=== PATIENT | female | born 1995 | race Hispanic/Latino ===

== ENCOUNTER 2016-09-26 00:02 | Emergency (ER) | payer OTHER ==
[2016-09-26 00:16] VITALS: BP 134/67; RESP 18; TEMP 97.8; O2SAT 98
[2016-09-26] MEDS ORDERED: Sodium Chloride 0.9% 1,000 ML IV STA (00:24)
--- NOTE | 2016-09-26 00:27 | ED PDOC ---
HPI: Psych/Substance Abuse Time Seen by Provider: 09/26/16 00:18 Chief Complaint (Nursing): Alcohol Ingestion Chief Complaint (Provider): etoh History Per: Patient, Other (friend) History/Exam Limitations: no limitations Onset/Duration Of Symptoms: Hrs Current Symptoms Are (Timing): Still Present Additional History Per: Patient, Friend Additional Complaint(s): 21 y/o male brought in by friend for eval of acute alcohol intoxication with vomiting. Patient's friend states she had multiple whiskey shots and mixed drinks and did not eat dinner. Denies fever, cough, congestion, chest pain, shortness of breath, palpitations, abdominal pain, changes in bowel movements, urinary symptoms, drug use. Past Medical History Reviewed: Historical Data, Nursing Documentation, Vital Signs Vital Signs: Last Vital Signs Temp 97.8 F 09/26/16 00:14 Pulse 112 H 09/26/16 00:14 Resp 18 09/26/16 00:14 BP 134/67 09/26/16 00:14 Pulse Ox 98 09/26/16 00:14 - Medical History PMH: No Chronic Diseases - Surgical History Surgical History: Tonsillectomy - Family History Family History: States: Unknown Family Hx - Living Arrangements Living Arrangements: Alone - Allergies Allergies/Adverse Reactions: Allergies Allergy/AdvReac Type Severity Reaction Status Date / Time No Known Allergies Allergy Verified 09/26/16 00:14 Review of Systems ROS Statement: Except As Marked, All Systems Reviewed And Found Negative Gastrointestinal: Positive for: Nausea, Vomiting Physical Exam - Reviewed Nursing Documentation Reviewed: Yes Vital Signs Reviewed: Yes - Physical Exam Appears: Positive for: Well, Non-toxic, No Acute Distress Head Exam: Positive for: ATRAUMATIC, NORMAL INSPECTION, NORMOCEPHALIC Skin: Positive for: Normal Color Eye Exam: Positive for: Normal appearance ENT: Positive for: Normal ENT Inspection Cardiovascular/Chest: Positive for: Regular Rate, Rhythm Respiratory: Positive for: Normal Breath Sounds Gastrointestinal/Abdominal: Positive for: Normal Exam, Bowel Sounds, Soft. Negative for: Tenderness Back: Positive for: Normal Inspection Extremity: Positive for: Normal ROM Neurologic/Psych: Positive for: Alert, Oriented, Other (+AOB, slurred speech) - Laboratory Results Result Diagrams: 09/26/16 00:29 09/26/16 00:29 - ECG O2 Sat by Pulse Oximetry: 98 - Progress ED Course And Treament: labs, urine, IV fluids, IV zofran 3:30 Patient tolerated PO, states she is feeling better. Patient educated on findings, discharged with instructions to follow up with PMD 2-3 days. Return to ED for worsening/concerning symptoms. Disposition - Clinical Impression Clinical Impression: Acute alcohol intoxication - Patient ED Disposition Is Patient to be Admitted: No Counseled Patient/Family Regarding: Studies Performed, Diagnosis, Need For Followup - Disposition Disposition: Routine/Home Disposition Time: 03:37 Condition: IMPROVED Instructions: Alcohol Intoxication (ED)
[2016-09-26 01:06] LABS: BASO % 0.8 % (0.0-2.0); EOS % 0.2 % (0.0-4.0); LYMPH # 1.4 K/uL (1.0-4.3); LYMPH % 22.7 % (20.0-40.0); MEAN CELL VOLUME 92.5 fl (81.0-99.0); MEAN CORPUSCULAR HEMOGLOBIN 30.4 pg (27.0-31.0); MEAN CORPUSCULAR HGB CONC 32.9 g/dL (33.0-37.0); MEAN PLATELET VOLUME 7.8 fl (7.2-11.7); MONO # 0.1 K/uL (0.0-0.8); MONO % 2.4 % (0.0-10.0); NEUT # 4.5 K/uL (1.8-7.0); NEUT % 73.9 % (50.0-75.0); RED CELL DISTRIBUTION WIDTH 13.2 % (11.5-14.5)
[2016-09-26 01:15] LABS: ALB/GLOB RATIO 1.7 (1.0-2.1); ALCOHOL SERUM 134 mg/dl (0-10); ALKALINE PHOSPHATASE 70 U/L (38-126); ALT/SGPT 34 U/L (9-52); AST/SGOT 29 U/L (14-36); BILIRUBIN,TOTAL 0.2 mg/dl (0.2-1.3); BLOOD UREA NITROGEN 8 mg/dl (7-17); CALCIUM 9.3 mg/dL (8.4-10.2); CARBON DIOXIDE 22 mmol/L (22-30); CHLORIDE 108 mmol/L (98-107); GFR AFRICAN-AMERICAN > 60; GLUCOSE,RANDOM 114 mg/dL (65-105); POTASSIUM 3.7 MMOL/L (3.6-5.0); SODIUM 144 mmol/l (132-148); TOTAL PROTEIN 8.3 G/DL (6.3-8.2)
[2016-09-26 03:38] VITALS: PULSE 75
== END 2016-09-26 04:00 | disposition home or self-care (01) ==
LOC: H.ER 00:02
DX: F10.129 Alcohol abuse with intoxication, unspecified (principal); R11.10 Vomiting, unspecified
CPT/HCPCS: 80053; 80320; 80324; 80345; 80346; 80349; 80353; 80358; 80361; 81025; 83992; 85025; 96374; 99283; J2405; J7040